=== PATIENT | male | born 1945 | race Caucasian/White ===

== ENCOUNTER 2022-05-24 05:24 | Observation (INO) | payer MEDICARE ==
[2022-05-22 11:55] LABS: BASOPHILS % 0.3 % (0.0-1.0); EOSINOPHILS # (AUTO) 0.1 (0.0-0.4); EOSINOPHILS % 0.8 % (0.0-6.0); HEMATOCRIT 47.4 % (38.2-49.6); HEMOGLOBIN 15.8 g/dL (14.0-18.0); LYMPHOCYTES # (AUTO) 3.8 (1.0-3.2); LYMPHOCYTES % 26.9 % (18.0-39.1); MEAN CORPUSCULAR HEMOGLOBIN 33.8 pg (28-32); MEAN CORPUSCULAR HGB CONC 33.3 g/dL (31-35); MEAN CORPUSCULAR VOLUME 101.3 fL (81-99); MONOCYTES # (AUTO) 0.8 (0.2-0.8); MONOCYTES % 5.3 % (4.4-11.3); NEUTROPHILS # (AUTO) 9.3 (2.1-6.9); NEUTROPHILS % 66.3 % (38.7-80.0); PLATELET COUNT 211 x10e3/uL (140-360); RED BLOOD COUNT 4.68 x10e6/uL (4.3-5.7); RED CELL DISTRIBUTION WIDTH 14.2 % (11.7-14.4)
[2022-05-22 12:11] LABS: INR 0.86; PROTHROMBIN TIME 12.5 seconds (11.9-14.5)
[2022-05-22 12:12] LABS: PARTIAL THROMBOPLASTIN TIME 25.2 seconds (23.8-35.5)
[2022-05-22 12:15] LABS: CALCIUM 9.7 mg/dL (8.4-10.2); CREATININE, SERUM 0.98 mg/dL (0.72-1.25)
[~2022-05-24 05:24] MED LIST: CIALIS20 MG PO; FOLIC ACID0.4 MG PO; GABAPENTIN300 MG PO; INSULIN PUMP SC; LANTUS 3ML100 UNITS/ SC; LIPITOR10 MG PO; METOPROLOL SUCC50 MG PO; MULTI-VITAMIN1 EACH PO; NOVOLOG MI100 UNIT/1 SC; OMEGA 3 1,0001 EACH PO; PLAVIX75 MG PO; VIT C PO; VIT D3 PO; ZESTRIL10 MG PO
[2022-05-24] MEDS ORDERED: Vancomycin IV 1 GM VIAL ONE (07:17)
[2022-05-24] MEDS ORDERED: LIDOCAINE 2% /EPINEPHRINE 20 ML SDV INJ ONE (07:17)
[2022-05-24] MEDS ORDERED: THROMBIN FOR SOLN 5,000 UNIT VIAL ONE (07:17)
[2022-05-24] MEDS ORDERED: HYDROCODON-ACE1 EA12 PO (09:37)
[2022-05-24] MEDS: LACTATED RINGER'S 1,000 ML IV SCH ×2 (09:45→16:22)
[2022-05-24] MEDS ORDERED: INSULIN ASPART 70/30 100 UNITS/ML VIAL SC SCH (09:45)
[2022-05-24] MEDS ORDERED: ONDANSETRON HCL INJ 2MG/ML 2ML 2 MG/ML VIAL IV PRN (09:45)
[2022-05-24] MEDS ORDERED: ACETAMINOPHEN 325 MG TAB PO PRN (09:45)
[2022-05-24] MEDS ORDERED: MORPHINE SULFATE 5 MG/ML VIAL IM PRN (09:45)
[2022-05-24] MEDS ORDERED: HYDROMORPHONE 2MG/ML 2 MG/ML ML IV PRN (09:45)
[2022-05-24] MEDS ORDERED: MAGNESIUM/ALUMINUM/SIMETHICONE 30 ML UDC PO PRN (09:45)
[2022-05-24] MEDS ORDERED: OXYCODONE/ACETAMINOPHEN 5-325 1 EACH TABLET PO PRN (09:45)
[2022-05-24] MEDS ORDERED: ZOLPIDEM TARTRATE 5 MG TAB PO PRN (09:45)
[2022-05-24] MEDS ORDERED: CEPACOL SORE THROAT LOZENGES PO PRN (09:45)
[2022-05-24] MEDS ORDERED: CARISOPRODOL 350 MG TAB PO PRN (09:45)
[2022-05-24] MEDS ORDERED: PROMETHAZINE HCL (IM) 25 MG/ML VIAL IM PRN (09:45)
[2022-05-24 12:27] VITALS: BP 138/60
[2022-05-24] MEDS ORDERED: MIDAZOLAM HCL 2 MG/2 ML VIAL ONE (13:14)
[2022-05-24] MEDS ORDERED: FENTANYL CITRATE/PF 100MCG/2 ML INJ ONE (13:14)
[2022-05-24] MEDS: GABAPENTIN 300 MG CAP PO SCH ×2 (15:00→22:18)
[2022-05-24 17:03] VITALS: BP 139/56
[2022-05-24] MEDS ORDERED: GLYCOPYRROLATE INJ 0.2 MG/ML VIAL ONE (17:57)
[2022-05-24] MEDS ORDERED: ONDANSETRON HCL INJ 2MG/ML 2ML 2 MG/ML VIAL ONE (17:57)
[2022-05-24] MEDS ORDERED: LIDOCAINE HCL (LTA) 4 ML SOLN ONE (17:57)
[2022-05-24] MEDS ORDERED: KETOROLAC TROMETHAMINE 30 MG/ML VIAL ONE (17:57)
[2022-05-24] MEDS ORDERED: SEVOFLURANE INHAL SOLN 250 ML PEN BTL ONE (17:57)
[2022-05-24] MEDS ORDERED: ROCURONIUM BROMIDE 10 MG/ML 5ML VIAL IV ONE (17:57)
[2022-05-24] MEDS ORDERED: SUGAMMADEX SODIUM 200 MG/2 ML VIAL IV ONE (17:57)
[2022-05-24] MEDS ORDERED: PROPOFOL IV EMULSION 10 MG/ML 20 ML VIAL ONE (17:57)
[2022-05-24] MEDS ORDERED: POVIDONE IODINE 0.05% 0.05 % ML PO ONE (17:57)
[2022-05-24] MEDS ORDERED: DEXAMETHASONE SOD PHOS INJ 4 MG/ML SDV ONE (17:57)
[2022-05-24] MEDS ORDERED: ACETAMINOPHEN 1000 MG/100 ML IV ONE (17:57)
[2022-05-24] MEDS ORDERED: LIDOCAINE HCL 2% LOCAL INJ 5 ML SDV VIAL INJ ONE (17:57)
[2022-05-24 20:00] VITALS: BP 122/77
[2022-05-24] MEDS ORDERED: ATORVASTATIN 20 MG TAB PO SCH (21:00)
[2022-05-25 01:12] VITALS: BP 131/40
[2022-05-25 05:13] VITALS: BP 121/57
[2022-05-25] MEDS: LACTATED RINGER'S 1,000 ML IV SCH (06:11)
[2022-05-25 07:58] VITALS: BP 122/51
[2022-05-25 08:00] VITALS: BP 122/51
[2022-05-25] MEDS ORDERED: FOLIC ACID 1 MG TAB PO SCH (09:00)
[2022-05-25] MEDS ORDERED: NON-FORMULARY MEDICATION (Insulin Glargine (Lantus 3ML Pen) 8 UNITS) SC SCH (09:00)
[2022-05-25] MEDS ORDERED: METOPROLOL SUCCINATE 50 MG TAB XL PO SCH (09:00)
[2022-05-25] MEDS ORDERED: LISINOPRIL 20 MG TAB PO SCH (09:00)
[2022-05-25] MEDS ORDERED: MULTIVITAMINS/MINERALS TAB PO SCH (09:00)
[2022-05-25] MEDS ORDERED: NON-FORMULARY MEDICATION (Folic Acid* 0.4 MG) PO SCH (09:00)
[2022-05-25] MEDS ORDERED: INSULIN GLARGINE 100 UNITS/ML VIAL SQ SCH (09:00)
== END 2022-05-25 09:59 | disposition home or self-care (01) ==
LOC: OR 05:24 → PACU V 09:34 → MED/SURG2 11:20
PROVIDERS: ADMIT Neurological Surgery; ATTEND Neurological Surgery
DX: M48.062 Spinal stenosis, lumbar region with neurogenic claudication (principal); I25.10 Atherosclerotic heart disease of native coronary artery without angina pectoris; I10 Essential (primary) hypertension; E11.9 Type 2 diabetes mellitus without complications; E78.5 Hyperlipidemia, unspecified; Z87.442 Personal history of urinary calculi; Z01.810 Encounter for preprocedural cardiovascular examination; Z01.812 Encounter for preprocedural laboratory examination; Z01.818 Encounter for other preprocedural examination; Z79.4 Long term (current) use of insulin; Z96.41 Presence of insulin pump (external) (internal)
CPT/HCPCS: 36415 ×3; 63047; 63048; 71046; 72020; 80048; 82948 ×2; 85025; 85610; 85730; 86850; 86900; 88304; 88311; 93005; G0378 ×2; J0131; J0690 ×2; J1100; J1885; J2001 ×2; J2250; J2405; J2704; J3010; J3370; J7121